=== PATIENT | female | born 1935 | race Caucasian/White ===

== ENCOUNTER 2017-02-04 23:13 | Observation (INO) | payer MEDICARE, OTHER ==
[~2017-02-04] VITALS: Ht 162.6 cm; Wt 79.7 kg
[~2017-02-04 23:13] MED LIST: ASPI-496 PO; ATOR40TA PO; CALC1TAB72 PO; CHOL200024 PO; CLOP75TA52 PO; ERGO500017 PO; GABA300C10 PO; HYOS0.1285 PO; LEVO125T PO; LIOT5TAB3 PO; LOPE2CAP94 PO; NITR100C PO; PROP60CA8 PO; RALO60TA PO; TRAM50TA2 PO; UBID50TA3 PEG; VITA1TAB26 PO; [UNRECOGNIZED DRUG - CODE] PO; [UNRECOGNIZED DRUG - OTHER] PO
[2017-02-04] MEDS ORDERED: NITROGLYCERIN OINT 2%, 1GM TP ONE (23:30)
[2017-02-04] MEDS ORDERED: SODIUM CHLORIDE FLUSH 10ML SYR IVF ONE (23:30)
[2017-02-04 23:53] LABS: HEMATOCRIT 41.3 % (34.6-47.8); HEMOGLOBIN 13.8 g/dL (11.7-16.4); WHITE BLOOD COUNT 9.5 x10^3/uL (3.4-10)
[2017-02-05 00:04] LABS: ASPARTATE AMINO TRANSFERASE 19 U/L (15-37); BLOOD UREA NITROGEN 28 mg/dL (7-18)
[2017-02-05] MEDS ORDERED: NITROGLYCERIN OINT 2%, 1GM TP ONE ×2 (00:11)
[2017-02-05 00:12] LABS: IS PT STATUS REG ER OR PRE ER? YES
[2017-02-05] MEDS ORDERED: FAMOTIDINE 20 MG/2 ML IVPush ONE (00:30)
[2017-02-05] MEDS ORDERED: FAMOTIDINE 20 MG/2 ML ONE (00:46)
[2017-02-05] MEDS ORDERED: SYMAX PO (01:20)
[2017-02-05] MEDS ORDERED: OLOP2.5D OP (01:21)
[2017-02-05] MEDS ORDERED: ONDANSETRON ODT 4 MG PO PRN (01:30)
[2017-02-05] MEDS ORDERED: LABETALOL 5MG/ML, 20ML IVPush PRN (01:30)
[2017-02-05] MEDS ORDERED: ACETAMINOPHEN 325 MG TABLET PO PRN (01:30)
[2017-02-05] MEDS ORDERED: TEMAZEPAM 15 MG CAPSULE PO PRN (01:30)
[2017-02-05] MEDS ORDERED: DOCUSATE 100 MG CAPSULE PO PRN (01:30)
[2017-02-05] MEDS ORDERED: ONDANSETRON 2MG/ML, 2ML IVPush PRN (01:30)
[2017-02-05] MEDS ORDERED: morphine SULFATE 10 MG/ML, 1ML IVPush PRN (01:30)
[2017-02-05] MEDS ORDERED: ELIQUIS PO (01:37)
[2017-02-05 02:25] LABS: IS PT STATUS REG ER OR PRE ER? YES
[2017-02-05] MEDS: LEVOTHYROXINE 125 MCG TABLET PO SCH (06:57)
[2017-02-05 07:55] LABS: IS PT STATUS REG ER OR PRE ER? YES
[2017-02-05] MEDS: DRONEDARONE 400MG TABLET PO SCH ×2 (08:00→21:31)
[2017-02-05] MEDS ORDERED: ACETAMINOPHEN 325 MG TABLET ONE (08:45)
[2017-02-05] MEDS ORDERED: APIXABAN 2.5 MG TABLET PO SCH (09:00)
[2017-02-05] MEDS ORDERED: HYOSCYAMINE 0.125 MG TABLET PO SCH (09:00)
[2017-02-05 11:16] VITALS: BP 138/78
[2017-02-05] MEDS ORDERED: MAALOX/HYOSCYAMINE/LIDOCAINE 45 ML BTL PO ONE (12:00)
[2017-02-05] MEDS: LIOTHYRONINE 5 MCG TABLET PO SCH (12:28)
[2017-02-05] MEDS: RALOXIFENE 60 MG TABLET PO SCH (12:30)
[2017-02-05] MEDS: GABAPENTIN 300 MG CAPSULE PO SCH ×3 (12:31→21:32)
[2017-02-05 14:18] VITALS: BP 130/73
[2017-02-05 19:37] VITALS: BP 110/63
[2017-02-05] MEDS ORDERED: ATORVASTATIN 40 MG TABLET PO SCH (21:00)
[2017-02-05] MEDS ORDERED: PROPRANOLOL 60 MG CAP.SA.24H PO SCH (21:00)
[2017-02-05 22:32] LABS: PATH.CAST-FLAG NOT PRESENT; SPERM-FLAG NOT PRESENT; SRC-FLAG NOT PRESENT; XTAL-FLAG NOT PRESENT; YLC-FLAG NOT PRESENT
[2017-02-05] MEDS: FAMOTIDINE 20 MG/2 ML IVPush SCH (23:29)
[2017-02-06 02:00] VITALS: BP 117/70
[2017-02-06] MEDS ORDERED: SODIUM CHLORIDE 0.9% 1,000 ML IV SCH ×2 (06:00→13:44)
[2017-02-06 06:02] LABS: HEMATOCRIT 42.9 % (34.6-47.8); HEMOGLOBIN 14.4 g/dL (11.7-16.4); WHITE BLOOD COUNT 10.7 x10^3/uL (3.4-10)
[2017-02-06 06:13] LABS: BLOOD UREA NITROGEN 19 mg/dL (7-18)
[2017-02-06] MEDS: SODIUM CHLORIDE 0.9% 1,000 ML IV SCH ×2 (06:28→16:00)
[2017-02-06] MEDS: LEVOTHYROXINE 125 MCG TABLET PO SCH (06:28)
[2017-02-06] MEDS ORDERED: SODIUM CHLORIDE 0.9% 1,000 ML IV ONE (08:02)
[2017-02-06] MEDS: RALOXIFENE 60 MG TABLET PO SCH (08:15)
[2017-02-06] MEDS: DRONEDARONE 400MG TABLET PO SCH (08:15)
[2017-02-06] MEDS: FAMOTIDINE 20 MG/2 ML IVPush SCH (08:16)
[2017-02-06] MEDS: GABAPENTIN 300 MG CAPSULE PO SCH ×2 (08:16→16:00)
[2017-02-06] MEDS: LIOTHYRONINE 5 MCG TABLET PO SCH (08:16)
[2017-02-06 08:21] VITALS: BP 143/77
[2017-02-06] MEDS ORDERED: LOPERAMIDE 1 MG/5 ML, 10ML UDC PO PRN (10:30)
[2017-02-06] MEDS ORDERED: VERAPAMIL 2.5 MG/ML, 2ML ONE (12:51)
[2017-02-06] MEDS ORDERED: TICAGRELOR 90 MG TABLET ONE (12:51)
[2017-02-06] MEDS ORDERED: BIVALIRUDIN 250 MG ONE (12:51)
[2017-02-06] MEDS ORDERED: FENTANYL PF 100 MCG/2ML ONE (12:51)
[2017-02-06] MEDS ORDERED: MIDAZOLAM 1 MG/ML, 5ML ONE (12:51)
[2017-02-06] MEDS ORDERED: HEPARIN 1,000 UNITS/ML, 10ML ONE (12:52)
[2017-02-06] MEDS ORDERED: LIDOCAINE 2%, 20ML ONE (12:52)
[2017-02-06 14:36] VITALS: BP 112/72
[2017-02-06] MEDS ORDERED: FAMO20TA37 PO (14:49)
[2017-02-06] MEDS ORDERED: DRON400T PO (14:49)
== END 2017-02-06 18:33 | disposition home or self-care (01) ==
LOC: ED 23:59 → INTOOBSV 02-05 01:24 → EDIP 02-05 01:24 → 5SO 02-05 11:08
PROVIDERS: ADMIT Internal Medicine; ATTEND Internal Medicine
DX: I25.110 Atherosclerotic heart disease of native coronary artery with unstable angina pectoris (principal); D68.59 Other primary thrombophilia; E03.9 Hypothyroidism, unspecified; E78.5 Hyperlipidemia, unspecified; E44.0 Moderate protein-calorie malnutrition; F41.9 Anxiety disorder, unspecified; I48.0 Paroxysmal atrial fibrillation; K21.9 Gastro-esophageal reflux disease without esophagitis; Z87.891 Personal history of nicotine dependence; Z95.5 Presence of coronary angioplasty implant and graft
CPT/HCPCS: 36415; 71010; 80048; 80053; 80061; 81001; 82607; 82746; 83036; 83690; 83880; 84443; 84484; 85025; 85610; 85730; 87086; 93005; 93458; 96374; 96376; 99156; 99285; C1894; G0378; J1644; J2250; J3010; J3490; J7030; Q9967; J0583; S0028

== ENCOUNTER → 2019-10-12 | Outpatient (CLI) | payer MEDICARE, OTHER ==
[~2019-10-12] MED LIST changes: +DRON400T PO; +ELIQUIS PO; +FAMO20TA37 PO; +LIOT5TAB11 PO; -LIOT5TAB3 PO; +LOPE-114 PO; -LOPE2CAP94 PO; +OLOP2.5D12 OP; +PROP60CA36 PO; -PROP60CA8 PO; +SYMAX PO
[2019-10-12 08:49] LABS: BASOPHILS # (AUTO) 0.05 x10^3/uL (0-0.1); BASOPHILS % (AUTO) 1 % (0-1); EOSINOPHILS # (AUTO) 0.08 x10^3/uL (0-0.4); EOSINOPHILS % (AUTO) 1 % (1-7); LYMPHOCYTES # (AUTO) 1.39 x10^3/uL (1-3.4); LYMPHOCYTES % (AUTO) 16 % (22-44); MD NO; MEAN CORPUSCULAR HEMOGLOBIN 33.6 pg (27.0-34.8); MEAN CORPUSCULAR HGB CONC 32.7 g/dL (32.4-35.8); MEAN CORPUSCULAR VOLUME 102.7 fL (80-100); MEAN PLATELET VOLUME 7.3 fL (7.4-10.4); MONOCYTES # (AUTO) 0.56 x10^3/uL (0.2-0.8); MONOCYTES % (AUTO) 6 % (2-9); NEUTROPHILS # (AUTO) 6.66 x10^3/uL (1.8-6.8); NEUTROPHILS % (AUTO) 76 % (42-75); PLATELET COUNT 243 x10^3/uL (130-400); RED BLOOD COUNT 3.82 x10^6/uL (3.82-5.3); RED CELL DISTRIBUTION WIDTH 13.9 % (9.6-15.2)
[2019-10-12 09:01] LABS: ALBUMIN 3.2 g/dL (3.4-5.0); ANION GAP 7 mmol/L (5-15); CALCIUM 8.7 mg/dL (8.5-10.1); CHLORIDE 106 mmol/L (98-107)
[2019-10-12 09:26] LABS: ALANINE AMINOTRANSFERASE 20 U/L (12-78); ALKALINE PHOSPHATASE 48 U/L (45-117); BILIRUBIN,TOTAL 0.8 mg/dL (0.2-1.0); CHOL/HDL RATIO 1.7; CHOLESTEROL, TOTAL 118 mg/dL (140-239); CREATININE 0.79 mg/dL (0.55-1.02); FREE T4 (FREE THYROXINE) 1.53 ng/dL (0.76-1.46); HDL CHOL % 58 % (28-40); HDL CHOLESTEROL (DIRECT) 69 mg/dL (40-60); LDL CHOLESTEROL,CALCULATED 36 mg/dL (54-169); LDL/HDL RATIO 0.5 (0.5-3.0); TOTAL PROTEIN 7.3 g/dL (6.4-8.2); TRIGLYCERIDES 67 mg/dL (50-200); VLDL CHOLESTEROL 13 mg/dL (0-25)
[2019-10-12 09:27] LABS: FOLATE LEVEL > 20.0 ng/mL (3.1-17.5)
== END | disposition home or self-care (01) ==
LOC: CVU 07:05
PROVIDERS: ATTEND Internal Medicine
DX: I70.203 Unspecified atherosclerosis of native arteries of extremities, bilateral legs (principal); E55.9 Vitamin D deficiency, unspecified; E03.9 Hypothyroidism, unspecified; I10 Essential (primary) hypertension
CPT/HCPCS: 36415; 80053; 80061; 82306; 82607; 82746; 84439; 84443; 85025; 93922; 93925

== ENCOUNTER 2020-06-07 10:08 | Day surgery (SDC) | payer MEDICARE, OTHER ==
[~2020-06-07] VITALS: Ht 157.5 cm; Wt 68.2 kg
[~2020-06-07 10:08] MED LIST changes: -CALC1TAB72 PO; +CALC1TAB74 PO
[2020-06-07] MEDS ORDERED: APIX5TAB PO (11:05)
[2020-06-07] MEDS ORDERED: LEVO137T2 PO (11:05)
[2020-06-07] MEDS ORDERED: GLUC-121 PO (11:05)
[2020-06-07] MEDS ORDERED: PANT40TA6 PO (11:05)
[2020-06-07 11:07] VITALS: BP 112/80
[2020-06-07] MEDS ORDERED: PROPOFOL 10 MG/ML, 20ML ONE (11:41)
[2020-06-07] MEDS ORDERED: ACETAMINOPHEN 325 MG TABLET ONE (13:53)
== END 2020-06-07 13:50 | disposition home or self-care (01) ==
LOC: CACL 10:08
PROVIDERS: ATTEND Internal Medicine Cardiovascular Disease
DX: I48.0 Paroxysmal atrial fibrillation (principal); I48.92 Unspecified atrial flutter; E78.2 Mixed hyperlipidemia; I10 Essential (primary) hypertension; I25.10 Atherosclerotic heart disease of native coronary artery without angina pectoris; K21.9 Gastro-esophageal reflux disease without esophagitis; E03.9 Hypothyroidism, unspecified; G47.30 Sleep apnea, unspecified; Z88.8 Allergy status to other drugs, medicaments and biological substances; Z88.1 Allergy status to other antibiotic agents; Z79.01 Long term (current) use of anticoagulants; Z79.899 Other long term (current) drug therapy; Z72.89 Other problems related to lifestyle; Z87.891 Personal history of nicotine dependence
CPT/HCPCS: 92960; 93005; J2704

== ENCOUNTER 2020-06-30 11:00 | Outpatient (CLI) | payer MEDICARE, OTHER ==
[~2020-06-30 11:00] MED LIST changes: +APIX5TAB PO; +GLUC-121 PO; +LEVO137T2 PO; +PANT40TA6 PO
== END 2020-06-30 23:59 | disposition home or self-care (01) ==
LOC: CFH 11:00
PROVIDERS: ATTEND Internal Medicine Cardiovascular Disease
DX: I08.3 Combined rheumatic disorders of mitral, aortic and tricuspid valves (principal); I48.91 Unspecified atrial fibrillation; R06.02 Shortness of breath
CPT/HCPCS: 93306

== ENCOUNTER → 2020-07-08 | Outpatient (CLI) | payer MEDICARE, OTHER ==
[2020-07-08 18:00] LABS: CLOSTRIDIUM DIFFICILE ANTIGEN NEGATIVE; CLOSTRIDIUM DIFFICILE TOXIN NEGATIVE (Negative)
== END | disposition home or self-care (01) ==
LOC: LAB 16:23
PROVIDERS: ATTEND Internal Medicine
DX: R19.7 Diarrhea, unspecified (principal)
CPT/HCPCS: 87046; 87177; 87209; 87324; 87427; 89055

== ENCOUNTER 2020-08-23 10:18 | Day surgery (SDC) | payer MEDICARE, OTHER ==
[~2020-08-23] VITALS: Ht 157.5 cm; Wt 65.9 kg
[~2020-08-23 10:18] MED LIST changes: +CALC-699 PO; -CALC1TAB74 PO; +PROPOFOL 10 MG/ML, 20ML ONE
[2020-08-23 10:54] VITALS: BP 123/61
[2020-08-23] MEDS ORDERED: Propanolol PO (11:05)
[2020-08-23] MEDS ORDERED: FURO-93 PO (11:05)
[2020-08-23] MEDS ORDERED: AMIO200T42 PO (11:05)
[2020-08-23] MEDS ORDERED: POTA10CA PO (11:07)
[2020-08-23] MEDS ORDERED: UBIQUINOL PO (11:08)
[2020-08-23] MEDS ORDERED: METR60CR TP (11:08)
[2020-08-23] MEDS ORDERED: CO Q PO (11:08)
[2020-08-23 11:12] LABS: CALCIUM 9.2 mg/dL (8.5-10.1); CHLORIDE 108 mmol/L (98-107)
[2020-08-23 11:13] LABS: CREATININE 0.83 mg/dL (0.55-1.02)
[2020-08-23 11:17] LABS: ANION GAP 2 mmol/L (5-15)
== END 2020-08-23 13:58 | disposition home or self-care (01) ==
LOC: CACL 10:18
PROVIDERS: ATTEND Internal Medicine Cardiovascular Disease
DX: I48.91 Unspecified atrial fibrillation (principal); I25.10 Atherosclerotic heart disease of native coronary artery without angina pectoris; I10 Essential (primary) hypertension; E78.5 Hyperlipidemia, unspecified; E03.9 Hypothyroidism, unspecified; G47.33 Obstructive sleep apnea (adult) (pediatric); E66.3 Overweight; Z68.27 Body mass index [BMI] 27.0-27.9, adult; Z79.01 Long term (current) use of anticoagulants; Z79.890 Hormone replacement therapy; Z79.899 Other long term (current) drug therapy; Z88.8 Allergy status to other drugs, medicaments and biological substances
CPT/HCPCS: 36415; 80048; 92960; 93005; J2704